=== PATIENT | female | born 1995 | race Caucasian/White ===

== ENCOUNTER 2016-07-14 08:30 | Emergency (ER) | payer BC, OTHER ==
[~2016-07-14] VITALS: Ht 157.5 cm; Wt 44.0 kg
[2016-07-14 08:36] VITALS: BP 106/73; PULSE 103; RESP 16; TEMP 97.3; O2SAT 97
[2016-07-14] MEDS ORDERED: ERYTOIN10 EACH EYE (08:53)
[2016-07-14] MEDS ORDERED: AZIT250T3 PO (08:53)
--- NOTE | 2016-07-14 08:54 | PD ---
HPI Chief Complaint: Allergic/Adverse Reaction Time Seen by Provider: 08:43 Travel History International Travel<30 days: No Contact w/Intl Traveler<30days: No Traveled to known affect area: No History of Present Illness HPI Patient 20-year-old female presents emergency department for complaints of a rash over her entire body. Patient states middle last week she went to an urgent care center he diagnosed a sinus infection. She was placed on some antibiotic drops she does not know the name of as well as Augmentin. She states she's never had Augmentin before. Patient states she started itching all over last night took a Benadryl prior to going to sleep and then woke up with her rashes morning. She denies any difficulty breathing and he choking sensation. She's never had an anaphylactic reaction before. She also states that her pink eye in the left eye is gradually been spreading to the right eye. Also review systems positive for a dry cough. Negative for bowel pain nausea vomiting diarrhea headache fevers PFSH Past Medical History Diminished Hearing: No ?: Not LMP: 07/02/16 Menopausal: No Social History Alcohol Use: Yes (OCC) Tobacco Use: Yes (/2 PPD) Substance Use: No Allergies-Medications (Allergen,Severity, Reaction): Coded Allergies: Sulfa (Verified Allergy, Intermediate, HIVES, 07/14/16) Augmentin (Verified Allergy, Mild, Hives, 07/14/16) Seen 07/14/2016. Hives alone Reported Meds & Prescriptions Reported Meds & Active Scripts Active Prednisone 20 Mg Tab 60 Mg PO DAILY 5 Days Erythromycin Opth Oint 5 Mg/Gm Oint 1 Applic EACH EYE BID 14 Days Azithromycin 250 Mg Tab 250 Mg PO DIRECTED Take 2 tabs (500 mg) on day 1 then 1 tab daily x 4 days. Reported Benadryl Allergy (Diphenhydramine HCl) 25 Mg Tab 25 Mg PO Q6H PRN Augmentin (Amoxicillin-Clavulanate) 875-125 mg Tab 875 Mg PO BID not for use in CrCl <30 ml/min. Review of Systems Except as stated in HPI: all other systems reviewed are Neg Physical Exam Narrative GENERAL: Well-developed well-nourished no apparent distress. SKIN: There is generalized urticarial rash on her upper extremities chest abdomen back lower extremities. Pruritic in nature. No focalized abscesses. Blanches to pressure. Spares palms. No weeping sores. HEAD: Atraumatic. Normocephalic. EYES: Pupils equal and round. No scleral icterus. There is injection of both eyes left greater than right. No chemosis. No hypopyon. Extra ocular movements are intact. ENT: No nasal bleeding or discharge. Oropharynx does show some mild injection, tonsils small. No discharge. TMs clear bilaterally. NECK: Trachea midline. No JVD. No lymphadenopathy. CARDIOVASCULAR: Regular rate and rhythm. No murmur appreciated. RESPIRATORY: No accessory muscle use. Clear to auscultation. Breath sounds equal bilaterally. GASTROINTESTINAL: Abdomen soft, non-tender, nondistended. Hepatic and splenic margins not palpable. MUSCULOSKELETAL: No obvious deformities. No clubbing. No cyanosis. No edema. NEUROLOGICAL: Awake and alert. No obvious cranial nerve deficits. Motor grossly within normal limits. Normal speech. PSYCHIATRIC: Appropriate mood and affect; insight and judgment normal. Data Data Last Documented VS Vital Signs Date Time Temp Pulse Resp B/P Pulse Ox O2 Delivery O2 Flow Rate FiO2 07/14/16 08:55 16 98 Room Air 07/14/16 08:36 97.3 103 106/73 MDM Medical Decision Making Medical Screen Exam Complete: Yes Emergency Medical Condition: Yes Differential Diagnosis Hives, conjunctivitis, sinusitis, pneumonia unlikely. Narrative Course Patient 20-year-old female overall appears well and in no obvious distress. She does have pruritic hives over her entire body had the recent addition of Augmentin to her regimen. Augmentin therefore is a likely cause symptomatic to her allergy list here as a mild reaction. Discussed discontinuing this medicine Benadryl by mouth and cream at home. We'll prescribe steroids for symptomatic relief. Switching to azithromycin. Will per also prescribe erythromycin ointment for her eyes. Discussed need for follow-up with her primary care physician and return to ED criteria. No indication for further workup in the emergency department. She is stable for discharge. Absolutely no airway involvement at this time. Diagnosis Primary Impression: Hives Additional Impression: Conjunctivitis Qualified Code: H10.33 - Acute bacterial conjunctivitis of both eyes Patient Instructions: General Instructions, Urticaria (GEN) Departure Forms: Tests/Procedures, Work Release Enter return to work date: Jul 16, 2016 Additional Instructions: Discontinue Augmentin and take azithromycin instead. Med/Other Pt SpecificInfo: Prescription(s) given Scripts Prednisone 20 Mg Tab60 Mg PO DAILY 5 Days Ref 0 Prov:Bridger Harper MD 07/14/16 Erythromycin Opth Oint 5 Mg/Gm Oint1 Applic EACH EYE BID 14 Days Ref 0 Prov:Bridger Harper MD 07/14/16 Azithromycin 250 Mg Oog767 Mg PO DIRECTED #6 TAB Ref 0 Take 2 tabs (500 mg) on day 1 then 1 tab daily x 4 days. Prov:Bridger Harper MD 07/14/16 Disposition: 01 DISCHARGE HOME Condition: Stable Bridger Harper MD Jul 14, 2016 08:54
[2016-07-14] MEDS ORDERED: PRED20 PO (08:55)
[2016-07-14] MEDS ORDERED: BENA25TA3 PO (09:01)
[2016-07-14] MEDS ORDERED: AUGM875T PO (09:01)
== END 2016-07-14 09:17 | disposition home or self-care (01) ==
LOC: PHED 08:30
DX: L50.9 Urticaria, unspecified (principal); H10.33 Unspecified acute conjunctivitis, bilateral
CPT/HCPCS: 99283